=== PATIENT | female | born 1955 | race Caucasian/White ===

== ENCOUNTER 2024-04-26 09:17 | Emergency (ER) | payer MEDICARE, OTHER ==
[2024-04-26] MEDS ORDERED: methylPREDNISolone Sod Succ/PF 125 MG/2 ML VIAL ONE (09:38)
== END 2024-04-26 09:45 | disposition home or self-care (01) ==
LOC: BURERS 09:17
DX: L50.9 Urticaria, unspecified (principal)
CPT/HCPCS: 96372; 99283; J2919